=== PATIENT | female | born 1985 | race Caucasian/White ===

== ENCOUNTER 2018-09-18 22:49 | Emergency (ER) | payer MEDICAID ==
[~2018-09-18] VITALS: Wt 89.1 kg
[~2018-09-18 22:49] MED LIST: PREN-39 PO
[2018-09-19] MEDS ORDERED: SOD CHLORIDE 0.9% 1,000 ML IV STA (02:12)
[2018-09-19] MEDS ORDERED: ONDANSETRON 4 MG INJ IV STA (02:12)
[2018-09-19] MEDS ORDERED: MECLIZINE 12.5 MG TAB PO ONE (02:30)
[2018-09-19] MEDS ORDERED: ACET325T33 PO (03:26)
[2018-09-19] MEDS ORDERED: ONDA4TAB14 PO (03:26)
[2018-09-19 03:33] VITALS: BP 128/80; PULSE 77; RESP 19
--- NOTE | 2018-09-19 05:23 | ERD ---
ER Documentation Chief Complaint Chief Complaint NAUSEA AND VOMITING X'S 1 HOUR HPI 33-year-old female presenting with nausea and vomiting x1 hour. Patient states if she feels that the room is spinning. Denies any chest pain or shortness of breath. Denies abdominal pain. Denies fevers. Has not taken medications for her symptoms. Denies headache. Denies visual changes. Denies recent head injury. Medical history is diabetes. NKDA. Surgical history denies. Social history denies ROS All systems reviewed and are negative except as per history of present illness. Medications Home Meds Active Scripts Acetaminophen* (Tylenol*) 325 Mg Tablet, 2 TAB PO Q6 PRN for PAIN AND OR ELEVATED TEMP, #20 TAB Prov:FARRUKH ALLAN PA-C 09/19/18 Ondansetron (Ondansetron Odt) 4 Mg Tab.rapdis, 4 MG PO Q6H PRN for NAUSEA AND/OR VOMITING, #10 TAB Prov:FARRUKH ALLAN PA-C 09/19/18 Reported Medications Vits W-Ca,Fe,Fa(<1MG) ( Vitamins) 1 Tab Tablet, 1 TAB PO DAILY for 7 Days 03/01/14 Allergies Allergies: Coded Allergies: No Known Allergy (Unverified , 03/03/14) PMhx/Soc History of Surgery: No Anesthesia Reaction: No Hx Neurological Disorder: No Hx Respiratory Disorders: No Hx Cardiac Disorders: No Hx Psychiatric Problems: No Hx Miscellaneous Medical Probl: No Hx Alcohol Use: No Hx Substance Use: No Hx Tobacco Use: No Smoking Status: Never smoker FmHx Family History: No diabetes, No coronary disease, No other Physical Exam Vitals Vital Signs Date Temp Pulse Resp B/P (MAP) Pulse Ox O2 O2 Flow FiO2 Time Delivery Rate 09/19/18 98.0 77 19 128/80 100 Room Air 03:33 (96) 09/18/18 97.4 91 18 119/84 99 23:03 (96) Physical Exam GENERAL: The patient is well-appearing, well-nourished, in no acute distress HEENT: Atraumatic. Conjunctivae are pink. Pupils equal, round, and reactive to light. There is no scleral icterus. Tympanic membranes clear bilaterally. Oropharynx clear. NECK: C-spine is soft and supple. There is no meningismus. There is no cervical lymphadenopathy. CHEST: Clear to auscultation bilaterally. There are no rales, wheezes or rhonchi. HEART: Regular rate and rhythm. No murmurs, clicks, rubs or gallops. ABDOMEN:Soft, nontender and nondistended. Good bowel sounds. No rebound or guarding. No gross peritonitis. No gross organomegaly or masses. No Taylor sign or McBurney point tenderness. NEUROLOGIC: Alert and oriented. Cranial nerves II through XII intact. Motor strength in all 4 extremities with 5 out of 5 strength. Sensation grossly intact. Normal speech and gait. Babinski negative. Result Diagram: 09/19/1822809/19/18228 Results 24 hrs Laboratory Tests Test 09/18/18 23:02 09/19/18 02:20 09/19/18 02:29 Bedside Glucose 166 mg/dL POC Beta HCG, Qualitative NEGATIVE White Blood Count 13.7 10^3/ul Red Blood Count 4.47 10^6/ul Hemoglobin 12.5 g/dl Hematocrit 39.8 % Mean Corpuscular Volume 89.0 fl Mean Corpuscular Hemoglobin 28.0 pg Mean Corpuscular 31.4 g/dl Hemoglobin Concent Red Cell Distribution Width 12.6 % Platelet Count 268 10^3/UL Mean Platelet Volume 12.0 fl Immature Granulocytes % 0.500 % Neutrophils % 81.3 % Lymphocytes % 12.7 % Monocytes % 5.0 % Eosinophils % 0.2 % Basophils % 0.3 % Nucleated Red Blood Cells % 0.0 /100WBC Immature Granulocytes # 0.070 10^3/ul Neutrophils # 11.2 10^3/ul Lymphocytes # 1.7 10^3/ul Monocytes # 0.7 10^3/ul Eosinophils # 0.0 10^3/ul Basophils # 0.0 10^3/ul Nucleated Red Blood Cells # 0.0 10^3/ul Urine Color YELLOW Urine Clarity SLIGHTLY CLOUDY Urine pH 7.0 Urine Specific [place] 1.029 Urine Ketones TRACE mg/dL Urine Nitrite NEGATIVE mg/dL Urine Bilirubin NEGATIVE mg/dL Urine Urobilinogen NEGATIVE mg/dL Urine Leukocyte Esterase NEGATIVE Divine/ul Urine Microscopic RBC 2 /HPF Urine Microscopic WBC 5 /HPF Urine Squamous Epithelial Cells FEW /HPF Urine Bacteria FEW /HPF Urine Mucus FEW /HPF Urine Hemoglobin NEGATIVE mg/dL Urine Glucose 2+ mg/dL Urine Total Protein 1+ mg/dl Sodium Level 142 mmol/L Potassium Level 4.2 mmol/L Chloride Level 105 mmol/L Carbon Dioxide Level 26 mmol/L Anion Gap 11 Blood Urea Nitrogen 11 mg/dl Creatinine 0.48 mg/dl Est Glomerular Filtrat > 60 mL/min Rate mL/min Glucose Level 229 mg/dl Calcium Level 9.3 mg/dl Total Bilirubin 0.6 mg/dl Direct Bilirubin 0.00 mg/dl Indirect Bilirubin 0.6 mg/dl Aspartate Amino Transf (AST/SGOT) 66 IU/L Alanine 89 IU/L Aminotransferase (ALT/SGPT) Alkaline Phosphatase 122 IU/L Total Protein 8.2 g/dl Albumin 4.4 g/dl Globulin 3.80 g/dl Albumin/Globulin Ratio 1.15 Lipase 43 U/L Current Medications Medications Dose Sig/Federico Start Time Status Last (Trade) Ordered Route PRN Stop Time Admin Dose Reason Admin Sodium 1,000 ml @ Q1H STAT 09/19/18 DC 09/19/18 Chloride 1,000 mls/hr IV 02:12 02:36 09/19/18 03:11 Ondansetron 4 mg ONCE STAT 09/19/18 DC 09/19/18 HCl (Zofran IV 02:12 02:36 Inj) 09/19/18 02:13 Meclizine 12.5 mg ONCE ONCE 09/19/18 DC 09/19/18 HCl PO 02:30 02:36 (Antivert) 09/19/18 02:31 Procedures/MDM ER course: 1 L normal saline and Zofran given in ED. Blood work normal. MDM: 33-year-old female presenting with nausea and vomiting. Patient's blood w ork is within normal limits. I have low suspicion for . I will suspicion for early imbalance. Anemia however the Days of [place] DKA. Patient is discharged with supportive medications. She is told symptoms change or worsen to return immediately to the ER. All questions answered at discharge Departure Diagnosis: Primary Impression: Nausea and vomiting Condition: Stable Patient Instructions: Nausea and Vomiting-Adult Referrals: COMM[facility] YOU HAVE RECEIVED A MEDICAL SCREENING EXAM AND THE RESULTS INDICATE THAT YOU DO NOT HAVE A CONDITION THAT REQUIRES URGENT TREATMENT IN THE EMERGENCY DEPARTMENT. FURTHER EVALUATION AND TREATMENT OF YOUR CONDITION CAN WAIT UNTIL YOU ARE SEEN IN YOUR DOCTORS OFFICE WITHIN THE NEXT 1-2 DAYS. IT IS YOUR RESPONSIBILITY TO MAKE AN APPOINTMENT FOR FOLOW-UP CARE. IF YOU HAVE A PRIMARY DOCTOR --you should call your primary doctor and schedule an appointment IF YOU DO NOT HAVE A PRIMARY DOCTOR YOU CAN CALL OUR PHYSICIAN REFERRAL HOTLINE AT IF YOU CAN NOT AFFORD TO SEE A PHYSICIAN YOU CAN CHOSE FROM THE FOLLOWING [facility] [address] [facility] [address] [facility] [facility] [address] [facility] [address] [facility] [address] [facility] [facility] [address] Additional Instructions: FOLLOW UP WITH YOUR PRIMARY CARE PHYSICIAN TOMORROW.Return to this facility if you are not improving as expected. FARRUKH ALLAN PA-C September 19, 2018 05:22
== END 2018-09-19 03:34 | disposition home or self-care (01) ==
LOC: FTE 22:49
DX: R11.2 Nausea with vomiting, unspecified (principal)
CPT/HCPCS: 36415; 80053; 81001; 81025; 82962; 83690; 85025; 96374; J2405; J7030; Z7502; Z7610